=== PATIENT | female | born 1990 | race Caucasian/White ===

== ENCOUNTER 2019-02-09 05:52 | Inpatient (IN) ==
[2019-02-09] MEDS ORDERED: Famotidine 20 MG/2 ML VIAL IVP PRN (05:53)
[2019-02-09] MEDS ORDERED: Metoclopramide 10 MG/2 ML VIAL IVP PRN ×2 (05:53→13:25)
[2019-02-09] MEDS ORDERED: Naloxone 0.4 MG/ML INJ IVP PRN (05:53)
[2019-02-09] MEDS ORDERED: Ringers Solution, Lactated 1,000 ML IVC SCH (06:00)
[2019-02-09 06:33] LABS: Basophils % 0.5 %; Eosinophils # 0.1 K/mcL (0.0-0.6); Eosinophils % 0.7 %; Hematocrit 33.4 % (35.3-44.9); Hemoglobin 11.6 g/dL (11.5-15.4); Immature Granulocytes % 1.4 % (0-4); Lymphocytes # 1.8 K/mcL (0.6-4.6); Lymphocytes % 20.2 %; Mean Corpuscular HGB Conc 34.7 g/dL (31.6-35.5); Mean Corpuscular Hemoglobin 30.7 pg (28.0-33.3); Mean Corpuscular Volume 88.4 fL (83.0-100.0); Mean Platelet Volume 10.2 fL (9.4-12.4); Monocytes # 0.5 K/mcL (0.0-1.3); Monocytes % 5.4 %; Neutrophils # 6.3 K/mcL (1.6-8.9); Platelet Count 186 K/mcL (140-400); Red Blood Count 3.78 M/mcL (3.82-4.97); Red Cell Distribution Width 13.2 % (11.5-14.5); Segmented Neutrophils % 71.8 %; White Blood Count 8.8 K/mcL (4.3-11.1)
[2019-02-09 06:43] LABS: Amphetamine Screen,Urine Negative ng/mL (Cutoff=1000); Barbiturate Screen,Urine Negative ng/mL (Cutoff=200)
[2019-02-09] MEDS ORDERED: Acetaminophen IV 1,000 MG/100 ML INFUS..BTL IVPB ONE (06:43)
[2019-02-09] MEDS ORDERED: Ibuprofen 400 MG TABLET PO PRN (06:43)
[2019-02-09] MEDS ORDERED: Ondansetron 4 MG/2 ML VIAL IVP PRN ×2 (06:43→13:25)
[2019-02-09] MEDS ORDERED: *HR* OxyCODONE/APAP 5/325 TABLET PO PRN (06:43)
[2019-02-09 06:44] LABS: Benzodiazepines Screen,Urine Negative ng/mL (Cutoff=300); Cannabinoid Screen,Urine Negative ng/mL (Cutoff = 50); Cocaine Screen,Urine Negative ng/mL (Cutoff= 300); Opiate Screen,Urine Negative ng/mL (Cutoff=300); Phencyclidine Screen,Urine Negative ng/mL (Cutoff=25)
[2019-02-09] MEDS ORDERED: CeFAZolin Premix DUPLEX 2,000 MG/50 ML BAG IVPB ONE (07:51)
[2019-02-09] MEDS ORDERED: *HR* Morphine Sulfate/PF 10 MG/10 ML AMPUL ONE (08:20)
[2019-02-09] MEDS ORDERED: *HR* Phenylephrine 10 MG/ML VIAL ONE (08:34)
[2019-02-09] MEDS ORDERED: Ringers Solution, Lactated 1,000 ML ONE (08:36)
[2019-02-09] MEDS ORDERED: Dexamethasone 4 MG/ML VIAL ONE (09:17)
[2019-02-09] MEDS ORDERED: Ondansetron 4 MG/2 ML VIAL ONE (09:17)
[2019-02-09] MEDS ORDERED: Oxytocin 20 units/ LR 1000 mL 20 UNIT/1,000 ML BAG IVC ONE (10:14)
[2019-02-09] MEDS ORDERED: Oxytocin 20 units/ LR 1000 mL 20 UNIT/1,000 ML BAG IVC SCH (13:25)
[2019-02-09] MEDS ORDERED: Sennosides 8.6 MG TABLET PO PRN (13:25)
[2019-02-09] MEDS ORDERED: Simethicone 80 MG TAB.CHEW PO PRN (13:25)
[2019-02-09] MEDS ORDERED: 0.9 % Sodium Chloride 1,000 ML IVC SCH (13:25)
[2019-02-09] MEDS ORDERED: Rho Immune Globulin 1,500 UNIT SYRINGE IM ONE (13:25)
[2019-02-09] MEDS: Ibuprofen 600 MG TABLET PO PRN (20:24)
[2019-02-10] MEDS: *HR* OxyCODONE/APAP 5/325 TABLET PO PRN ×2 (03:21→20:16)
[2019-02-10 07:11] LABS: Basophils % 0.2 %; Eosinophils # 0.1 K/mcL (0.0-0.6); Eosinophils % 0.5 %; Hematocrit 30.8 % (35.3-44.9); Hemoglobin 10.2 g/dL (11.5-15.4); Immature Granulocytes % 0.5 % (0-4); Lymphocytes # 1.3 K/mcL (0.6-4.6); Lymphocytes % 11.8 %; Mean Corpuscular HGB Conc 33.1 g/dL (31.6-35.5); Mean Corpuscular Hemoglobin 30.4 pg (28.0-33.3); Mean Corpuscular Volume 91.7 fL (83.0-100.0); Monocytes # 0.6 K/mcL (0.0-1.3); Monocytes % 5.5 %; Platelet Count 144 K/mcL (140-400); Red Blood Count 3.36 M/mcL (3.82-4.97); Red Cell Distribution Width 13.2 % (11.5-14.5); Segmented Neutrophils % 81.5 %; White Blood Count 11.1 K/mcL (4.3-11.1)
[2019-02-10] MEDS: Prenatal Vit/FA 1 EACH TABLET PO SCH (08:34)
[2019-02-10] MEDS: Ibuprofen 600 MG TABLET PO PRN ×2 (08:35→15:19)
[2019-02-11] MEDS: *HR* OxyCODONE/APAP 5/325 TABLET PO PRN ×3 (00:50→10:21)
[2019-02-11] MEDS: Ibuprofen 600 MG TABLET PO PRN (07:48)
[2019-02-11] MEDS: Prenatal Vit/FA 1 EACH TABLET PO SCH (07:49)
[2019-02-11 07:50] VITALS: BP 102/59
== END 2019-02-11 10:25 | disposition home or self-care (01) | DRG 784 ==
LOC: 1NENULAB 05:52 → 1NENUOBS 10:29
PROVIDERS: ADMIT Student in an Organized Health Care Education/Training Program; ATTEND Student in an Organized Health Care Education/Training Program